=== PATIENT | female | born 1960 | race Asian ===

== ENCOUNTER 2020-10-20 07:50 | Emergency (ER) | payer MEDICARE ==
[~2020-10-20] VITALS: Ht 157.5 cm; Wt 74.1 kg
[2020-10-20] MEDS ORDERED: METF-446 PO (07:58)
[2020-10-20] MEDS ORDERED: LOSA100T58 PO (07:58)
[2020-10-20] MEDS ORDERED: INSLAN SQ (07:58)
[2020-10-20] MEDS ORDERED: ATOR40TA71 PO (07:58)
[2020-10-20 08:32] LABS: BASOPHILS % (AUTO) 0.6 % (0.0-2.0); EOSINOPHILS % (AUTO) 2.5 % (1.0-6.0); HEMATOCRIT 38.9 % (36-46); HEMOGLOBIN 12.9 g/dL (12.0-16.0); LYMPHOCYTES # (AUTO) 1.7 K/uL (1.0-4.8); MEAN CORPUSCULAR HEMOGLOBIN 28.7 pg (26.0-34.0); MEAN CORPUSCULAR HGB CONC 33.2 G/dL (31.0-37.0); MEAN CORPUSCULAR VOLUME 86 fL (80-100); MONOCYTES # (AUTO) 0.5 K/uL (0.1-1.0); MONOCYTES % (AUTO) 8.2 % (2.0-9.0); NEUTROPHILS # (AUTO) 3.4 K/uL (1.8-7.7); NEUTROPHILS % (AUTO) 58.7 % (40.0-70.0); PLATELET COUNT (AUTO) 264 K/uL (150-450); RED CELL DISTRIBUTION WIDTH 13.4 % (11.5-14.5)
[2020-10-20 08:51] LABS: CALCIUM, TOTAL 9.6 mg/dL (8.8-10.5); CREATININE 1.03 mg/dL (0.60-1.30)
[2020-10-20 10:06] VITALS: BP 149/71
== END 2020-10-20 10:39 | disposition home or self-care (01) ==
LOC: EMS 07:54
DX: S20.311A Abrasion of right front wall of thorax, initial encounter (principal); S10.91XA Abrasion of unspecified part of neck, initial encounter; R55 Syncope and collapse; R07.9 Chest pain, unspecified; E11.9 Type 2 diabetes mellitus without complications; E78.00 Pure hypercholesterolemia, unspecified; I10 Essential (primary) hypertension; Z79.84 Long term (current) use of oral hypoglycemic drugs; V49.9XXA Car occupant (driver) (passenger) injured in unspecified traffic accident, initial encounter; Y93.89 Activity, other specified; Y92.89 Other specified places as the place of occurrence of the external cause; Y99.8 Other external cause status
CPT/HCPCS: 70450; 71045; 80048; 82962; 85025; 93005; 99285; 36415-L1; 36415-TC